=== PATIENT | male | born 1965 ===

== ENCOUNTER 2023-10-06 05:15 | Day surgery (SDC) | payer OTHER ==
[2023-09-30 11:56] LABS: URINE APPEARANCE Clear; URINE BILIRRUBIN Negative (NEGATIVE); URINE BLOOD Negative; URINE COLOR Yellow; URINE GLUCOSE Negative (NEGATIVE); URINE LEUKOCYTE Small; URINE NITRATE Negative; URINE PROTEIN Negative (NEGATIVE); URINE UROBILINOGEN 0.2 E.U./dl
[2023-09-30 12:00] LABS: URINE BACTERIA 35.2 uL (0.0-1933); URINE EPITHELIAL CELLS 4.7 uL (0.0-38.8); URINE RBC 3.1 uL (0.0-20.8); URINE WBC 49.7 uL (0.0-23.2)
[2023-09-30 12:03] LABS: HEMATOCRIT 41.4 % (39.0-48.0); HEMOGLOBIN 14.1 g/dL (13-16.00); MEAN CORPUSCULAR HEMOGLOBIN 31.4 pg (27.00-32.0); MEAN CORPUSCULAR HGB CONC 34.2 g/dl (32.0-36.0); RED CELL DISTRIBUTION WIDTH 14.6 % (11.5-14.5)
[2023-09-30 12:30] LABS: INR 1.22; PARTIAL THROMBOPLASTIN TIME 26.5 SECONDS (22.0-34.0)
[2023-09-30 12:38] LABS: PROTHROMBIN TIME 12.6 SECONDS (9.0-11.5)
[2023-09-30 12:43] LABS: ALBUMIN 3.3 gm/dL (3.4-5.0); BILIRUBIN TOTAL 2.02 mg/dL (0.3-1.2); CALCIUM 9.4 mg/dL (8.5-10.1); CREATININE SERUM 1.33 mg/dL (0.70-1.30); GFR 54.85; GLOBULINA 4.1 G/DL (2.4-3.5); POTASSIUM 4.21 mEq/L (3.5-5.1); TOTAL PROTEIN 7.4 gm/dL (6.4-8.2)
[2023-09-30 12:44] LABS: PLATELET COUNT 80 K/uL (150-450)
[~2023-10-06 05:15] MED LIST: ALDACTONE50 MG PO; BENZONATATE200 M1 PO; CARVEDILOL6.25 M1 PO; FEOSOL325 MG PO; FUROSEMIDE20 MG PO; GLIPIZIDE XL5 MG PO; METFORMIN HCL1000 M1 PO; PROP PO; TRULICITY0.75 MG/0.; VASOTEC20 M1 PO; XIFAXAN550 MG PO
== END 2023-10-06 15:40 | disposition home or self-care (01) ==
LOC: CIR.AMB 05:15
PROVIDERS: ATTEND Otolaryngology Otology & Neurotology
DX: H66.91 Otitis media, unspecified, right ear (principal); H72.91 Unspecified perforation of tympanic membrane, right ear; E11.9 Type 2 diabetes mellitus without complications; Z20.822 Contact with and (suspected) exposure to COVID-19